=== PATIENT | female | born 1985 | race American Indian/Alaskan Native ===

== ENCOUNTER 2017-01-20 16:02 | Emergency (ER) | payer OTHER ==
[2017-01-20 18:09] LABS: Bilirubin,Urine NEG (Negative); Blood,Urine NEG (Negative); Ketones,Urine 80 mg/dL (Negative); Leukocyte Esterase,Urine NEG (Negative); Mucus,Urine 3+ /HPF; Nitrite,Urine NEG (Negative); Protein,Urine <15 mg/dL mg/dL (Negative); Urobilinogen,Urine < 2.0 mg/dL (<2.0)
[2017-01-20 18:10] LABS: WBC,Urine < 1.0 /HPF (0.0-6.0)
[2017-01-20 19:54] LABS: Basophils % (Auto) 0.8 % (0.0-1.8); Eosinophils % (Auto) 0.1 % (0.0-4.3); Hematocrit 34.8 % (30.3-42.9); Hemoglobin 10.9 gm/dl (10.1-14.3); Mean Corpuscular HGB Conc 31 % (30-34); Mean Corpuscular Hemoglobin 22 pg (28-32); Mean Corpuscular Volume 72 fl (79-97); Platelet Count 209 K/mm3 (140-440); Red Blood Count 4.86 M/mm3 (3.65-5.03); Red Cell Distribution Width 21.1 % (13.2-15.2); White Blood Count 8.3 K/mm3 (4.5-11.0)
[2017-01-20 20:12] LABS: Alanine Aminotransferase 11 units/L (7-56); Albumin 4.5 g/dL (3.9-5); Albumin/Globulin Ratio 1.4 %; Alkaline Phosphatase 59 units/L (35-129); Anion Gap 16 mmol/L; BUN/Creatinine Ratio 16.66; Bilirubin,Total 0.5 mg/dL (0.1-1.2); Blood Urea Nitrogen 10 mg/dL (7-17); Calcium 9.8 mg/dL (8.4-10.2); Carbon Dioxide 25 mmol/L (22-30); Chloride 99.8 mmol/L (98-107); Glucose 107 mg/dL (65-100); Lipase 15 units/L (13-60); Potassium 3.7 mmol/L (3.6-5.0); Sodium 137 mmol/L (137-145); Total Protein 7.7 g/dL (6.3-8.2)
[2017-01-20] MEDS ORDERED: ZOFRAN ODT ONE (21:50)
[2017-01-20] MEDS ORDERED: NORCO 5/325 ONE (21:50)
[2017-01-20] MEDS ORDERED: NORCO 5/325 PO ONE (21:57)
[2017-01-20] MEDS ORDERED: ZOFRAN ODT PO ONE (21:57)
[2017-01-20] MEDS ORDERED: ZOFRAN IV ONE (23:30)
[2017-01-20] MEDS ORDERED: PEPCID IV ONE (23:30)
[2017-01-20] MEDS ORDERED: MORPHINE IV ONE (23:30)
[2017-01-20] MEDS ORDERED: D5NS 1,000 ML IV SCH (23:45)
--- NOTE | 2017-01-21 00:06 | Emergency Department Report ---
ED Abdominal Pain HPI - General Chief Complaint: Abdominal Pain Stated Complaint: UPPER GASTRIC PAIN/VOMITING Time Seen by Provider: 01/20/17 23:26 Source: patient Mode of arrival: Ambulatory Limitations: No Limitations - History of Present Illness Initial Comments: 31-year-old female with a past medical history gallstones diagnosed 5 years ago presents to the hospital complaining of right upper quadrant abdominal pain radiating to her right back that started at 4 AM. Last meal was 9:30 PM. Since patient is started patient has had multiple episodes of nausea, vomiting, and diarrhea with by mouth intolerance. Pain is constant, severe rated 10/10 intensity, worse and movement and palpation. No alleviating factors reported. Patient received Zofran and hydrocodone prior to my evaluation with temporary relief of pain but it has returned once again. Patient was diagnosed with gallstones 5 years ago and has not had any problems since. She denies previous abdominal surgeries, recent travel, or sick contacts. Severity scale (0 -10): 10 - Related Data Previous Rx's Medication Instructions Recorded Last Taken Type Ondansetron [Zofran Odt] 4 mg PO Q8HR PRN #20 tab.rapdis 01/21/17 Unknown Rx oxyCODONE /ACETAMINOPHEN [Percocet 1 tab PO Q6HR PRN #30 tablet 01/21/17 Unknown Rx 5/325] Allergies Allergy/AdvReac Type Severity Reaction Status Date / Time Penicillins Allergy Angioedema Verified 01/20/17 17:36 ED Review of Systems ROS: Stated complaint: UPPER GASTRIC PAIN/VOMITING Other details as noted in HPI Comment: All other systems reviewed and negative Other: Constitutional: No fevers chills Eyes: No eye pain visual changes ENT: No ear pain or throat pain Neck: Denies pain Respiratory: Denies cough wheezing shortness of breath Cardiovascular: Denies chest pain, palpitations, syncope GI: As per HPI : Denies dysuria Musculoskeletal: Denies back pain, joint swelling Skin: Denies rash, lesions, erythema Neurologic: Denies headache, numbness, weakness Psychiatric: Denies suicidal ideation, hallucinations ED Past Medical Hx - Past Medical History Additional medical history: Gallstones - Surgical History Past Surgical History?: No - Social History Smoking Status: Current Some Day Smoker Substance Use Type: None - Medications Home Medications: Home Medications Medication Instructions Recorded Confirmed Last Taken Type Ondansetron [Zofran Odt] 4 mg PO Q8HR PRN #20 tab.rapdis 01/21/17 Unknown Rx oxyCODONE /ACETAMINOPHEN [Percocet 1 tab PO Q6HR PRN #30 tablet 01/21/17 Unknown Rx 5/325] ED Physical Exam - General Limitations: No Limitations - Other Other exam information: General: No limitations, moderate distress secondary to pain Head exam: Atraumatic, normocephalic Eyes exam: Normal appearance, not icteric sclera ENT: Moist mucous membrane, normal oropharynx Neck exam: Normal inspection, full range of motion, no meningismus nontender Respiratory exam: Clear to auscultation bilateral, no wheezes, rales, crackles Cardiovascular: Normal rate and rhythm, normal heart sounds Abdomen: Soft, nondistended, right upper quadrant tenderness epigastric area, with normal bowel sounds, no rebound, or guarding Extremity: Full range of motion normal inspection no deformity Back: Normal Inspection, full range of motion, no tenderness Neurologic: Alert, oriented x3, cranial nerves intact, no motor or sensory deficit Psychiatric: normal affect, normal mood Skin: Warm, dry, intact ED Course Vital Signs 01/20/17 01/20/17 01/20/17 17:36 22:58 23:49 Temperature 98.1 F Pulse Rate 64 Respiratory 18 20 20 Rate Blood Pressure 116/74 Blood Pressure [Left] O2 Sat by Pulse 100 Oximetry 01/20/17 01/21/17 23:58 00:03 Temperature 98.4 F Pulse Rate 58 L Respiratory 20 20 Rate Blood Pressure Blood Pressure 122/79 [Left] O2 Sat by Pulse 99 100 Oximetry - Reevaluation(s) Reevaluation #1: 01/21/17 00:06 Patient treated with morphine, Zofran, and D5NS ED Medical Decision Making - Lab Data Result diagrams: 01/20/17 19:27 01/20/17 19:27 Lab Results 01/20/17 01/20/17 01/20/17 Range/Units 17:52 19:27 19:27 WBC 8.3 (4.5-11.0) K/mm3 RBC 4.86 (3.65-5.03) M/mm3 Hgb 10.9 (10.1-14.3) gm/dl Hct 34.8 (30.3-42.9) % MCV 72 L (79-97) fl MCH 22 L (28-32) pg MCHC 31 (30-34) % RDW 21.1 H (13.2-15.2) % Plt Count 209 (140-440) K/mm3 Lymph % (Auto) 14.2 (13.4-35.0) % Noble % (Auto) 4.2 (0.0-7.3) % Eos % (Auto) 0.1 (0.0-4.3) % Baso % (Auto) 0.8 (0.0-1.8) % Lymph # 1.2 (1.2-5.4) K/mm3 Noble # 0.3 (0.0-0.8) K/mm3 Eos # 0.0 (0.0-0.4) K/mm3 Baso # 0.1 (0.0-0.1) K/mm3 Seg Neutrophils % 80.7 H (40.0-70.0) % Seg Neutrophils # 6.7 (1.8-7.7) K/mm3 Sodium 137 (137-145) mmol/L Potassium 3.7 (3.6-5.0) mmol/L Chloride 99.8 (98-107) mmol/L Carbon Dioxide 25 (22-30) mmol/L Anion Gap 16 mmol/L BUN 10 (7-17) mg/dL Creatinine 0.6 L (0.7-1.2) mg/dL Estimated GFR > 60 ml/min BUN/Creatinine Ratio 16.66 % Glucose 107 H (65-100) mg/dL Calcium 9.8 (8.4-10.2) mg/dL Total Bilirubin 0.5 (0.1-1.2) mg/dL AST 18 (5-40) units/L ALT 11 (7-56) units/L Alkaline Phosphatase 59 (35-129) units/L Total Protein 7.7 (6.3-8.2) g/dL Albumin 4.5 (3.9-5) g/dL Albumin/Globulin Ratio 1.4 % Lipase 15 (13-60) units/L Urine Color Yellow (Yellow) Urine Turbidity Clear (Clear) Urine pH 6.0 (5.0-7.0) Ur Specific [place] 1.024 (1.003-1.030) Urine Protein <15 mg/dl (Negative) mg/dL Urine Glucose (UA) Neg (Negative) mg/dL Urine Ketones 80 (Negative) mg/dL Urine Blood Neg (Negative) Urine Nitrite Neg (Negative) Ur Reducing Substances Not Reportable Urine Bilirubin Neg (Negative) Urine Ictotest Not Reportable Urine Urobilinogen < 2.0 (<2.0) mg/dL Ur Leukocyte Esterase Neg (Negative) Urine WBC (Auto) < 1.0 (0.0-6.0) /HPF Urine RBC (Auto) 6.0 (0.0-6.0) /HPF U Epithel Cells (Auto) 4.0 (0-13.0) /HPF Urine Mucus 3+ /HPF Urine HCG, Qual Negative (Negative) - Radiology Data Radiology results: report reviewed Abdominal ultrasound: Cholelithiasis. No cholecystitis or biliary duct dilatation - Medical Decision Making PT sx improved with IV morphine, zofran and D5ns. no signs of infection. Patient be discharged home with medications for symptomatic treatment of biliary Colic and referral to PMD and surgery - Differential Diagnosis pancreatitis, biliary colic, peptic ulcer disease, gastroenter, hepatitis, Critical Care Time: No Critical care attestation.: If time is entered above; I have spent that time in minutes in the direct care of this critically ill patient, excluding procedure time. ED Disposition Clinical Impression: Biliary colic, Vomiting, Dehydration Disposition: DISCHARGED TO HOME OR SELFCARE Is pt being admited?: No Does the pt Need Aspirin: No Condition: Stable Instructions: Biliary Colic (ED) Additional Instructions: Take the medication as needed. Percocet may cause drowsiness and constipation. Therefore, do not drive or operate heavy machine while taking this medication and take stool softeners as needed for constipation. No signs of infection at this time. Follow with the primary care doctor and the surgeon provided for further outpatient management. Return if symptoms worsen. Prescriptions: Ondansetron [Zofran Odt] 4 mg PO Q8HR PRN #20 tab.rapdis PRN Reason: Nausea And Vomiting oxyCODONE /ACETAMINOPHEN [Percocet 5/325] 1 tab PO Q6HR PRN #30 tablet PRN Reason: Pain Referrals: ELIZ WESTBROOK MD [Staff Physician] - 3-5 Days (primary care doctor) MEDINA YUN MD [Staff Physician] - 3-5 Days (surgeon) [facility] [Provider Group] - 3-5 Days (primary care clinic) Time of Disposition: 01:56
--- NOTE | 2017-01-21 00:53 | Ultrasound Report ---
FINAL REPORT PROCEDURE: US ABDOMEN LIMITED TECHNIQUE: Real-time sonography in multiple planes of the gallbladder fossa and CBD with imaging of the adjacent liver, pancreas, and right kidney was performed with image documentation. CPT 96746 HISTORY: abd pain n/v, hx of gallstones COMPARISON: No prior studies are available for comparison. FINDINGS: Liver: Normal size and echotexture with no evidence of cystic or solid mass lesion. Gallbladder: There are multiple gallstones measuring up to 15 millimeters. There is no wall thickening or pericholecystic fluid.. Intrahepatic bile ducts: Normal . Extrahepatic bile ducts: Normal . Pancreas: Normal as visualized with suboptimal depiction of the pancreatic tail. Right kidney: Normal echotexture. No focal renal mass, calculus, or hydronephrosis. Other: No free fluid. IMPRESSION: Cholelithiasis. There is no evidence of cholecystitis or biliary ductal dilatation.
[2017-01-21] MEDS ORDERED: DILAUDID IV ONE (03:47)
[2017-01-21] MEDS ORDERED: ZOFRAN ODT PO ONE (03:48)
[2017-01-21 04:18] VITALS: BP 120/68
== END 2017-01-21 04:46 | disposition home or self-care (01) ==
LOC: ED 16:02
DX: K80.50 Calculus of bile duct without cholangitis or cholecystitis without obstruction (principal); E86.0 Dehydration; R11.10 Vomiting, unspecified; F17.200 Nicotine dependence, unspecified, uncomplicated; Z88.0 Allergy status to penicillin
CPT/HCPCS: 36415; 76705; 80053; 81001; 81025; 83690; 85025; 96361; 96374; 96375; 99284; J1170; J2270; J2405; J7042; Q0162

== ENCOUNTER 2017-02-24 15:26 | Emergency (ER) | payer OTHER ==
--- NOTE | 2017-02-24 20:28 | Emergency Department Report ---
ED N/V/D HPI - General Chief complaint: Nausea/Vomiting/Diarrhea Stated complaint: GALLSTONE PAIN/N/V/D Time Seen by Provider: 02/24/17 20:27 Source: patient Mode of arrival: Ambulatory Limitations: No Limitations - History of Present Illness Initial comments: Patient here complaining of nausea vomiting and diarrhea for the last 3 days. She says she tried [id number] medication but it's not working. She says she had fever yesterday but none today. Reports that she's having right upper quadrant pain on and off that radiates to her back at times. She says she is not having any pain at present but it comes and goes and feels crampy. Patient reports that she had 8 diarrhea stools today that were watery and vomited 2 today. She has a history of gallstones and had similar episode in the past. Last menstrual period was 02/10/2017. MD complaint: nausea, vomiting, diarrhea, abdominal pain Onset/Timin -: days(s) Description of Vomiting: food contents Description of Diarrhea: water Associated Abdominal Pain: Yes Location: RUQ Radiation: other (backkbac) Pain Scale: 0 Quality: cramping Consistency: intermittent Improves with: none Worsens with: none Context: other (similar episode for gallstones.) Associated Symptoms: fever/chills, loss of appetite, nausea/vomiting. denies: myalgias, chest pain, cough, diaphoresis, headaches, malaise, rash, dysuria, shortness of breath, syncope, weakness - Related Data Previous Rx's Medication Instructions Recorded Last Taken Type Ondansetron [Zofran Odt] 4 mg PO Q8HR PRN #20 tab.rapdis 01/21/17 Unknown Rx oxyCODONE /ACETAMINOPHEN [Percocet 1 tab PO Q6HR PRN #30 tablet 01/21/17 Unknown Rx 5/325] Promethazine [Phenergan TAB] 25 mg PO Q8HR PRN #15 tab 02/25/17 Unknown Rx traMADol [Ultram] 50 mg PO Q6HR PRN #20 tablet 02/25/17 Unknown Rx Allergies Allergy/AdvReac Type Severity Reaction Status Date / Time Penicillins Allergy Angioedema Verified 01/20/17 17:36 ED Review of Systems ROS: Stated complaint: GALLSTONE PAIN/N/V/D Other details as noted in HPI Comment: All other systems reviewed and negative Constitutional: fever. denies: weakness Eyes: denies: vision change ENT: denies: throat pain Respiratory: no symptoms reported Cardiovascular: denies: chest pain, palpitations, edema, syncope Gastrointestinal: abdominal pain, nausea, vomiting, diarrhea. denies: melena Genitourinary: denies: urgency, dysuria, frequency, hematuria, discharge, abnormal menses Musculoskeletal: back pain. denies: arthralgia Skin: denies: rash Neurological: denies: headache, numbness, paresthesias, confusion, abnormal gait , vertigo ED Past Medical Hx - Past Medical History Previous Medical History?: Yes Additional medical history: Gallstones - Surgical History Past Surgical History?: No - Family History Family history: no significant - Social History Smoking Status: Current Some Day Smoker Substance Use Type: None - Medications Home Medications: Home Medications Medication Instructions Recorded Confirmed Last Taken Type Ondansetron [Zofran Odt] 4 mg PO Q8HR PRN #20 tab.rapdis 01/21/17 Unknown Rx oxyCODONE /ACETAMINOPHEN [Percocet 1 tab PO Q6HR PRN #30 tablet 01/21/17 Unknown Rx 5/325] Promethazine [Phenergan TAB] 25 mg PO Q8HR PRN #15 tab 02/25/17 Unknown Rx traMADol [Ultram] 50 mg PO Q6HR PRN #20 tablet 02/25/17 Unknown Rx ED Physical Exam - General Limitations: No Limitations General appearance: alert, in no apparent distress - Head Head exam: Present: atraumatic, normocephalic, normal inspection - Eye Eye exam: Present: normal appearance, PERRL, EOMI. Absent: scleral icterus Pupils: Present: normal accommodation - ENT ENT exam: Present: normal exam, normal orophraynx, mucous membranes moist, TM's normal bilaterally, normal external ear exam - Neck Neck exam: Present: normal inspection, full ROM. Absent: tenderness, meningismus, lymphadenopathy - Respiratory Respiratory exam: Present: normal lung sounds bilaterally. Absent: respiratory distress, chest wall tenderness - Cardiovascular Cardiovascular Exam: Present: regular rate, normal rhythm, normal heart sounds - GI/Abdominal GI/Abdominal exam: Present: soft, tenderness (right upper quadrant), normal bowel sounds. Absent: distended, guarding, rebound, rigid, organomegaly, mass, bruit, pulsatile mass, hernia - Expanded GI/Abdominal Exam Expanded GI/Abdominal exam: Absent: Paige's sign, ascites - Extremities Exam Extremities exam: Present: normal inspection, full ROM, normal capillary refill. Absent: tenderness, pedal edema, joint swelling, calf tenderness - Back Exam Back exam: Present: normal inspection, full ROM. Absent: tenderness, CVA tenderness (R), CVA tenderness (L), muscle spasm, paraspinal tenderness, vertebral tenderness, rash noted - Neurological Exam Neurological exam: Present: alert, oriented X3, normal gait, reflexes normal. Absent: motor sensory deficit - Psychiatric Psychiatric exam: Present: normal affect, normal mood - Skin Skin exam: Present: warm, dry, intact, normal color. Absent: rash ED Course Vital Signs 02/24/17 16:11 Temperature 97.9 F Pulse Rate 65 Respiratory 16 Rate Blood Pressure 117/76 O2 Sat by Pulse 100 Oximetry Vital Signs 02/24/17 02/25/17 16:11 00:12 Temperature 97.9 F Pulse Rate 65 61 Respiratory 16 18 Rate Blood Pressure 117/76 Blood Pressure 101/70 [Left] O2 Sat by Pulse 100 99 Oximetry - Reevaluation(s) Reevaluation #1: 02/24/17 23:55 Patient given IV fluid 2 L normal saline in emergency room. She was further challenged with apple juice she tolerated well. Patient also given Zofran IV for nausea and Toradol 30 mg for pain. Patient states she felt better. Potassium was 3.4 and I gave her potassium 40 mEq times one dose. ED Medical Decision Making - Lab Data Result diagrams: 02/24/17 21:33 02/24/17 21:33 Lab Results 02/24/17 02/24/17 02/24/17 Range/Units 20:30 21:33 21:33 WBC 7.1 (4.5-11.0) K/mm3 RBC 4.85 (3.65-5.03) M/mm3 Hgb 10.9 (10.1-14.3) gm/dl Hct 35.7 (30.3-42.9) % MCV 74 L (79-97) fl MCH 23 L (28-32) pg MCHC 31 (30-34) % RDW 21.2 H (13.2-15.2) % Plt Count 204 (140-440) K/mm3 Lymph % (Auto) 29.5 (13.4-35.0) % Wallace % (Auto) 10.6 H (0.0-7.3) % Eos % (Auto) 3.0 (0.0-4.3) % Baso % (Auto) 0.5 (0.0-1.8) % Lymph # 2.1 (1.2-5.4) K/mm3 Wallace # 0.7 (0.0-0.8) K/mm3 Eos # 0.2 (0.0-0.4) K/mm3 Baso # 0.0 (0.0-0.1) K/mm3 Seg Neutrophils % 56.4 (40.0-70.0) % Seg Neutrophils # 4.0 (1.8-7.7) K/mm3 Sodium 138 (137-145) mmol/L Potassium 3.4 L (3.6-5.0) mmol/L Chloride 101.6 (98-107) mmol/L Carbon Dioxide 21 L (22-30) mmol/L Anion Gap 19 mmol/L BUN 10 (7-17) mg/dL Creatinine 0.6 L (0.7-1.2) mg/dL Estimated GFR > 60 ml/min BUN/Creatinine Ratio 16.66 % Glucose 84 (65-100) mg/dL Calcium 8.9 (8.4-10.2) mg/dL Total Bilirubin 0.20 (0.1-1.2) mg/dL Direct Bilirubin < 0.2 (0-0.2) mg/dL Indirect Bilirubin 0.0 mg/dL AST 16 (5-40) units/L ALT 8 (7-56) units/L Alkaline Phosphatase 65 (35-129) units/L Total Protein 7.3 (6.3-8.2) g/dL Albumin 3.7 L (3.9-5) g/dL Albumin/Globulin Ratio 1.0 % Lipase 26 (13-60) units/L HCG, Qual (Negative) Urine Color [place] (Yellow) Urine Turbidity Turbid (Clear) Urine pH 5.0 (5.0-7.0) Ur Specific [place] 1.030 (1.003-1.030) Urine Protein 30 mg/dl (Negative) mg/dL Urine Glucose (UA) Neg (Negative) mg/dL Urine Ketones Tr (Negative) mg/dL Urine Blood Neg (Negative) Urine Nitrite Neg (Negative) Urine Bilirubin Neg (Negative) Urine Urobilinogen < 2.0 (<2.0) mg/dL Ur Leukocyte Esterase Neg (Negative) Urine WBC (Auto) 1.0 (0.0-6.0) /HPF Urine RBC (Auto) 13.0 (0.0-6.0) /HPF U Epithel Cells (Auto) 9.0 (0-13.0) /HPF Calcium Oxalate Crystal 2+ Urine Mucus 3+ /HPF 02/24/17 Range/Units 21:33 WBC (4.5-11.0) K/mm3 RBC (3.65-5.03) M/mm3 Hgb (10.1-14.3) gm/dl Hct (30.3-42.9) % MCV (79-97) fl MCH (28-32) pg MCHC (30-34) % RDW (13.2-15.2) % Plt Count (140-440) K/mm3 Lymph % (Auto) (13.4-35.0) % Wallace % (Auto) (0.0-7.3) % Eos % (Auto) (0.0-4.3) % Baso % (Auto) (0.0-1.8) % Lymph # (1.2-5.4) K/mm3 [place] # (0.0-0.8) K/mm3 Eos # (0.0-0.4) K/mm3 Baso # (0.0-0.1) K/mm3 Seg Neutrophils % (40.0-70.0) % Seg Neutrophils # (1.8-7.7) K/mm3 Sodium (137-145) mmol/L Potassium (3.6-5.0) mmol/L Chloride (98-107) mmol/L Carbon Dioxide (22-30) mmol/L Anion Gap mmol/L BUN (7-17) mg/dL Creatinine (0.7-1.2) mg/dL Estimated GFR ml/min BUN/Creatinine Ratio % Glucose (65-100) mg/dL Calcium (8.4-10.2) mg/dL Total Bilirubin (0.1-1.2) mg/dL Direct Bilirubin (0-0.2) mg/dL Indirect Bilirubin mg/dL AST (5-40) units/L ALT (7-56) units/L Alkaline Phosphatase (35-129) units/L Total Protein (6.3-8.2) g/dL Albumin (3.9-5) g/dL Albumin/Globulin Ratio % Lipase (13-60) units/L HCG, Qual Negative (Negative) Urine Color (Yellow) Urine Turbidity (Clear) Urine pH (5.0-7.0) Ur Specific [place] (1.003-1.030) Urine Protein (Negative) mg/dL Urine Glucose (UA) (Negative) mg/dL Urine Ketones (Negative) mg/dL Urine Blood (Negative) Urine Nitrite (Negative) Urine Bilirubin (Negative) Urine Urobilinogen (<2.0) mg/dL Ur Leukocyte Esterase (Negative) Urine WBC (Auto) (0.0-6.0) /HPF Urine RBC (Auto) (0.0-6.0) /HPF U Epithel Cells (Auto) (0-13.0) /HPF Calcium Oxalate Crystal Urine Mucus /HPF - Radiology Data Radiology results: report reviewed Ultrasound right upper quadrant abdomen revealed: No cyanosis. No sonographic evidence of acute cholecystitis. Pancreas visualized portions are unremarkable. , Bilateral back is 5.3 mm focal abnormalities identified within the visual portion of the liver. Leidy. Evidence for intrahepatic or extrahepatic biliary dilatation. There is no evidence of gallbladder wall thickening or pericholectstic fluid. - Medical Decision Making ED course: Seen here with complaints of nausea vomiting and diarrhea and intermittent abdominal pain over the last 3 days. CBC and BMP/hepatic panel with stable labs except potassium was mildly decreased therefore she was given potassium 40 mEq 1 by mouth. Patient received IV fluids 2 L and emergency room. She was also a challenge with apple juice which she tolerated without any diarrhea or nausea vomiting. Patient given Zofran 4 mg IV. Later she was given Toradol 30 mg IV because she said she was having right upper quadrant cramping. Ultrasound of right upper quadrant and abdomen reveal patient with cholelithiasis versus subacute without any cholecystitis. I instructed patient on her lab results and told her that she'll need to follow-up with occupational therapy director and surgery. She voiced understanding. Patient is now without nausea or vomiting. She hasn't had diarrhea stools that she's been in emergency room. Pain was controlled. Patient discharged home with prescription for Phenergan and to eat diet to include banana, rice, applesauce and toast. I also explained to her that she needs to increase her fluid intake to include Gatorade. She voiced understanding and discharged home in stable condition with prescription for Phenergan and tramadol. Critical care attestation.: If time is entered above; I have spent that time in minutes in the direct care of this critically ill patient, excluding procedure time. ED Disposition Clinical Impression: Biliary colic, Nausea vomiting and diarrhea Cholelithiasis Qualifiers: Cholelithiasis location: gallbladder Cholecystitis presence: without cholecystitis Biliary obstruction: without biliary obstruction Qualified Code(s) : K80.20 - Calculus of gallbladder without cholecystitis without obstruction Disposition: DISCHARGED TO HOME OR SELFCARE Is pt being admited?: No Does the pt Need Aspirin: No Condition: Stable Instructions: Acute Nausea and Vomiting (ED), Acute Diarrhea (ED), Nutrition Tips for Relief of Diarrhea (ED), Biliary Colic (ED) Additional Instructions: Please including her diet over the next 72 hours banana, rice, applesauce and toast avoid spicy and fattening food. Take Medication as prescribed. Avoid driving or operating heavy machinery while taking Ultram and Phenergan as these can cause drowsiness. See discharge instructions. 4. Altered congestion and serologies and surgery. Please drink plenty of water to include Gatorade. Prescriptions: Promethazine [Phenergan TAB] 25 mg PO Q8HR PRN #15 tab PRN Reason: Nausea traMADol [Ultram] 50 mg PO Q6HR PRN #20 tablet PRN Reason: Pain Referrals: DANYEL BADILLO MD [Primary Care Provider] - 02/26/17 ANAYELI IHGH MD [Staff Physician] - 2-3 Days [facility] [Provider Group] - 2-3 Days Forms: Work/School Release Form(ED)
[2017-02-24] MEDS ORDERED: NACL 0.9% 1000 ML 1,000 ML IV ONE ×2 (20:33→22:23)
[2017-02-24] MEDS ORDERED: ZOFRAN IV ONE (20:33)
[2017-02-24 21:35] LABS: Bilirubin,Urine NEG (Negative); Blood,Urine NEG (Negative); Ketones,Urine TR mg/dL (Negative); Leukocyte Esterase,Urine NEG (Negative); Mucus,Urine 3+ /HPF; Nitrite,Urine NEG (Negative); Urobilinogen,Urine < 2.0 mg/dL (<2.0)
[2017-02-24 22:18] LABS: Basophils % (Auto) 0.5 % (0.0-1.8); Mean Corpuscular HGB Conc 31 % (30-34); Mean Corpuscular Volume 74 fl (79-97); Platelet Count 204 K/mm3 (140-440); Red Blood Count 4.85 M/mm3 (3.65-5.03); White Blood Count 7.1 K/mm3 (4.5-11.0)
[2017-02-24 22:31] LABS: Alanine Aminotransferase 8 units/L (7-56); Albumin 3.7 g/dL (3.9-5); Alkaline Phosphatase 65 units/L (35-129); Anion Gap 19 mmol/L; BUN/Creatinine Ratio 16.66; Blood Urea Nitrogen 10 mg/dL (7-17); Calcium 8.9 mg/dL (8.4-10.2); Carbon Dioxide 21 mmol/L (22-30); Chloride 101.6 mmol/L (98-107); Glucose 84 mg/dL (65-100); Lipase 26 units/L (13-60); Potassium 3.4 mmol/L (3.6-5.0); Sodium 138 mmol/L (137-145); Total Protein 7.3 g/dL (6.3-8.2)
[2017-02-24 22:49] LABS: Bilirubin,Direct < 0.2 mg/dL (0-0.2)
[2017-02-24 22:54] LABS: Hemoglobin 10.9 gm/dl (10.1-14.3)
[2017-02-24 22:55] LABS: Hematocrit 35.7 % (30.3-42.9); Mean Corpuscular Hemoglobin 23 pg (28-32); Red Cell Distribution Width 21.2 % (13.2-15.2)
[2017-02-24] MEDS ORDERED: K-DUR PO ONE (23:30)
[2017-02-24] MEDS ORDERED: TORADOL IV ONE (23:31)
--- NOTE | 2017-02-24 23:43 | Ultrasound Report ---
FINAL REPORT EXAM: US ABDOMEN LIMITED HISTORY: RUQ TECHNIQUE: Ultrasound abdomen PRIORS: None. FINDINGS: No focal abnormality is identified within the visualized portion of the liver parenchyma. No evidence for intrahepatic or extrahepatic biliary dilatation. Common bile duct is 4.3 millimeters Shadowing echogenic foci are present within the lumen of the gallbladder. Three calculi observed the largest measuring 1.0 centimeters there is no evidence for gallbladder wall thickening or pericholecystic fluid. A negative sonographic Paige sign is reported Pancreas is incompletely seen. Visualized portions are unremarkable. The right kidney is 10.8 x 4.0 x 5.4 centimeters. Cortical thickness 1.6 centimeters. No evidence for hydronephrosis Abdominal aorta is not well visualized. IMPRESSION: Cholelithiasis No sonographic evidence for acute cholecystitis
[2017-02-25 00:13] VITALS: BP 101/70
== END 2017-02-25 00:50 | disposition home or self-care (01) ==
LOC: ED 15:26
DX: K80.70 Calculus of gallbladder and bile duct without cholecystitis without obstruction (principal); R19.7 Diarrhea, unspecified; R11.2 Nausea with vomiting, unspecified; F17.200 Nicotine dependence, unspecified, uncomplicated; Z88.0 Allergy status to penicillin
CPT/HCPCS: 36415; 76705; 80048; 80074; 81001; 83690; 84703; 85025; 96361; 96374; 96375; 99284; J1885; J2405; J7030